=== PATIENT | male | born 1980 | race African-American/Black ===

== ENCOUNTER 2018-08-14 01:20 | Emergency (ER) | payer MEDICAID ==
[2018-08-14 05:52] LABS: ADD MAN DIFF? NO
[2018-08-14 05:56] LABS: BASOPHIL # 0.1 10^3/ul (0.0-0.1); BASOPHILS % 0.6 % (0.0-2.0); EOSINOPHILS # 0.4 10^3/ul (0.0-0.5); EOSINOPHILS % 2.4 % (0.0-7.0); HEMOGLOBIN 13.1 g/dl (14.0-18.0); LYMPHOCYTES # 2.1 10^3/ul (0.8-2.9); LYMPHOCYTES % 14.5 % (15.0-51.0); MEAN CORPUSCULAR HEMOGLOBIN 29.1 pg (29.0-33.0); MEAN CORPUSCULAR HGB CONC 32.8 g/dl (32.0-37.0); MEAN CORPUSCULAR VOLUME 88.9 fl (82.0-101.0); MEAN PLATELET VOLUME 9.4 fl (7.4-10.4); MONOCYTE # 1.1 10^3/ul (0.3-0.9); MONOCYTES % 7.3 % (0.0-11.0); NEUTROPHIL # 10.9 10^3/ul (1.6-7.5); NEUTROPHILS % 74.6 % (39.0-77.0); PLATELET COUNT 348 10^3/UL (140-415); RED CELL DISTRIBUTION WIDTH 12.6 % (11.5-14.5)
[2018-08-14 05:56] LABS: WHITE BLOOD COUNT 14.6 10^3/ul (4.8-10.8)
[2018-08-14 06:12] LABS: ALANINE AMINOTRANSFERASE 20 IU/L (13-69); ALBUMIN 4.3 g/dl (3.3-4.9); ALBUMIN/GLOBULIN RATIO 1.16; ALKALINE PHOSPHATASE 117 IU/L (42-121); ANION GAP 10 (5-13); ASPARTATE AMINO TRANSFERASE 25 IU/L (15-46); BILIRUBIN,INDIRECT 0.3 mg/dl (0-1.1); BILIRUBIN,TOTAL 0.3 mg/dl (0.2-1.3); BLOOD UREA NITROGEN 15 mg/dl (7-20); CARBON DIOXIDE 27 mmol/L (21-31); CHLORIDE 103 mmol/L (97-110); CREATININE 1.28 mg/dl (0.61-1.24); Estimated GFR > 60 mL/min (>60); GLUCOSE 109 mg/dl (70-220); LIPASE 305 U/L (23-300); SODIUM 140 mmol/L (135-144)
[2018-08-14 06:28] LABS: INR 0.84; PROTIME 11.6 Sec (11.9-14.9); PT RATIO 0.9
[2018-08-14 06:29] LABS: PARTIAL THROMBOPLASTIN TIME 28.1 Sec (23.0-35.0)
[2018-08-14] MEDS: ONDANSETRON 4 MG INJ IV ×2 (06:35→09:26)
[2018-08-14] MEDS: morphine 4 MG/ML VIAL IV (06:36)
[2018-08-14 07:02] LABS: POTASSIUM 3.9 mmol/L (3.5-5.1)
[2018-08-14 07:45] LABS: CREATINE KINASE 325 IU/L (23-200)
[2018-08-14 07:58] LABS: CK INDEX 0.2; CK-MB 0.75 ng/ml (0.0-2.4); TROPONIN-I < 0.012 ng/ml (0.000-0.120)
[2018-08-14 08:39] LABS: ADD UMIC NO; UR ASCORBIC ACID NEGATIVE (NEGATIVE); UR BILIRUBIN (Dip) NEGATIVE (NEGATIVE); UR BLOOD (Dip) NEGATIVE (NEGATIVE); UR CLARITY CLEAR (CLEAR); UR COLOR STRAW (YELLOW); UR GLUCOSE (Dip) NEGATIVE (NEGATIVE); UR KETONES (Dip) NEGATIVE (NEGATIVE); UR LEUKOCYTE ESTERASE (Dip) NEGATIVE Leu/ul (NEGATIVE); UR NITRITE (Dip) NEGATIVE (NEGATIVE); UR TOTAL PROTEIN (Dip) NEGATIVE (NEGATIVE); UR UROBILINOGEN (Dip) NEGATIVE (NEGATIVE)
[2018-08-14] MEDS: CEFTRIAXONE 1 GM/50 ML (PMX) 50 ML IVPB (09:26)
[2018-08-14] MEDS: HYDROmorphONE 1 MG/ML SYG IV (09:27)
== END 2018-08-14 11:12 | disposition home or self-care (01) ==
LOC: E/R 11:12
DX: L03.115 Cellulitis of right lower limb (principal)
CPT/HCPCS: 36415; 73590; 80053; 81003; 82550; 82553; 83690; 84484; 85025; 85610; 85730; 87040-91; 93971; 96374; 96375; 96376; 99285-25

== ENCOUNTER 2018-09-09 16:46 | Emergency (ER) | payer MEDICAID ==
[2018-09-09 17:37] LABS: ADD MAN DIFF? NO
[2018-09-09 17:41] LABS: WHITE BLOOD COUNT 7.3 10^3/ul (4.8-10.8)
[2018-09-09 17:41] LABS: BASOPHIL # 0.1 10^3/ul (0.0-0.1); EOSINOPHILS # 0.5 10^3/ul (0.0-0.5); EOSINOPHILS % 6.5 % (0.0-7.0); HEMATOCRIT 37.8 % (42.0-52.0); HEMOGLOBIN 12.3 g/dl (14.0-18.0); MEAN CORPUSCULAR HEMOGLOBIN 28.9 pg (29.0-33.0); MEAN CORPUSCULAR HGB CONC 32.5 g/dl (32.0-37.0); MEAN CORPUSCULAR VOLUME 88.7 fl (82.0-101.0); MEAN PLATELET VOLUME 10.1 fl (7.4-10.4); MONOCYTE # 0.6 10^3/ul (0.3-0.9); MONOCYTES % 8.1 % (0.0-11.0); NEUTROPHIL # 4.1 10^3/ul (1.6-7.5); NEUTROPHILS % 56.7 % (39.0-77.0); POSITIVE DIFF @See below; RED BLOOD COUNT 4.26 10^6/ul (4.70-6.10); RED CELL DISTRIBUTION WIDTH 12.8 % (11.5-14.5)
[2018-09-09 17:43] LABS: PLATELET COUNT 124 10^3/UL (140-415)
[2018-09-09] MEDS: KETOROLAC 30 MG INJ IM (18:28)
== END 2018-09-09 20:28 | disposition home or self-care (01) ==
LOC: FTE 16:46
DX: L03.115 Cellulitis of right lower limb (principal); M79.605 Pain in left leg; F17.210 Nicotine dependence, cigarettes, uncomplicated
CPT/HCPCS: 73590; 85025; 93971; 96372; 99285-25